=== PATIENT | female | born 1965 | race Two or more races ===

== ENCOUNTER → 2022-07-17 | Emergency (ER) | payer BC ==
[~2022-07-17] VITALS: Ht 154.9 cm; Wt 63.5 kg
[2022-07-17 10:57] VITALS: BP 140/67
--- NOTE | 2022-07-17 12:40 | NUR ---
Multiple calls NO response. Lexi
--- NOTE | 2022-07-17 12:45 | NUR ---
Multiple calls NO response. Lexi
--- NOTE | 2022-07-17 12:51 | NUR ---
Multiple calls NO response. Lexi
== END | disposition home or self-care (01) ==
LOC: ER 13:01
DX: Z53.21 Procedure and treatment not carried out due to patient leaving prior to being seen by health care provider (principal)